=== PATIENT | female | born 1940 | race Caucasian/White ===

== ENCOUNTER 2016-08-26 06:40 | Day surgery (SDC) | payer OTHER, MEDICARE ==
[~2016-08-26] VITALS: Ht 160 cm; Wt 54.4 kg
[2016-08-26] MEDS ORDERED: CEFAZOLIN 1 GM IVPB PREMIX 50 ML IV ONE ×2 (07:00→07:50)
[2016-08-26] MEDS ORDERED: LR 1,000 ML IV.SOLN IV ONE (07:15)
[2016-08-26] MEDS ORDERED: MIDAZOLAM HCL 5 MG/5 ML VIAL IVP ONE (07:15)
[2016-08-26] MEDS ORDERED: KETAMINE HCL 500 MG/10 ML VIAL IVP ONE (07:15)
[2016-08-26] MEDS ORDERED: DEXAMETHASONE SOD PHOSPHATE 4 MG/ML VIAL IVP ONE (07:15)
[2016-08-26] MEDS ORDERED: SEVOFLURANE 15 MIN GAS INH ONE (07:15)
[2016-08-26] MEDS ORDERED: KETOROLAC TROMETHAMINE 30 MG VIAL IVP ONE (07:15)
[2016-08-26] MEDS ORDERED: ONDANSETRON HCL 4 MG/2 ML VIAL IVP ONE ×3 (07:15→10:45)
[2016-08-26] MEDS ORDERED: fentaNYL CITRATE 250 MCG/5 ML AMP IV ONE (07:15)
[2016-08-26] MEDS ORDERED: ROCURONIUM BROMIDE 10 MG/ML (ZEMURON) IV ONE (07:15)
[2016-08-26] MEDS ORDERED: PROPOFOL 200MG/ 20ML VIAL (DIPRIVAN) IV ONE (07:15)
[2016-08-26] MEDS ORDERED: LR 1,000 ML IV SCH (07:55)
[2016-08-26] MEDS ORDERED: HYDROmorphone 2 MG/ML VIAL IVP PRN ×2 (08:00)
[2016-08-26] MEDS ORDERED: HYDROmorphone 1 MG INJ. 1 MG/ML AMPUL IVP PRN ×2 (08:00→09:15)
[2016-08-26] MEDS ORDERED: MEPERIDINE HCL/PF 25 MG/ML DISP.SYRIN IVP PRN (08:00)
[2016-08-26] MEDS ORDERED: IOHEXOL 50 ML IV ONE (08:01)
[2016-08-26] MEDS ORDERED: D5/0.45 NS 1,000 ML IV SCH (09:15)
[2016-08-26] MEDS ORDERED: HYDROcodone/ACETAMIN 5-325 MG TAB (NORCO/ VICODIN) PO PRN ×2 (09:15)
[2016-08-26] MEDS ORDERED: HYDROmorphone 1 MG INJ. 1 MG/ML AMPUL ONE (09:41)
[2016-08-26] MEDS ORDERED: DILTIAZEM HCL 25 MG/5 ML VIAL IV ONE (09:55)
[2016-08-26] MEDS ORDERED: DILTIAZEM HCL 25 MG/5 ML VIAL IVP ONE (10:15)
[2016-08-26] MEDS ORDERED: ONDANSETRON HCL 4 MG/2 ML VIAL ONE (10:41)
[2016-08-26] MEDS ORDERED: HYDROcodone/ACETAMIN 5-325 MG TAB (NORCO/ VICODIN) ONE (10:52)
[2016-08-26] MEDS ORDERED: HYDROcodone/ACETAMIN 5-325 MG TAB (NORCO/ VICODIN) PO ONE (10:55)
[2016-08-26 10:58] VITALS: BP_SYST 170
== END 2016-08-26 12:00 | disposition home or self-care (01) ==
LOC: SDS 06:40 → SMU 06:40 → SDS 12:00
PROVIDERS: ATTEND Colon & Rectal Surgery
DX: K80.12 Calculus of gallbladder with acute and chronic cholecystitis without obstruction (principal); I25.10 Atherosclerotic heart disease of native coronary artery without angina pectoris; G30.9 Alzheimer's disease, unspecified; F02.80 Dementia in other diseases classified elsewhere, unspecified severity, without behavioral disturbance, psychotic disturbance, mood disturbance, and anxiety; I10 Essential (primary) hypertension; E11.9 Type 2 diabetes mellitus without complications; G62.9 Polyneuropathy, unspecified; F32.9 Major depressive disorder, single episode, unspecified
CPT/HCPCS: 47563; 71010; 74300; 88304; J0690; J1100; J1170; J1885; J2250; J2405; J2704; J3010; J3490; J7120; Q9967; C1727